=== PATIENT | female | born 1945 | race Caucasian/White ===

== ENCOUNTER 2017-03-14 21:44 | Emergency (ER) | payer MEDICARE, OTHER ==
[~2017-03-14] VITALS: Ht 162.6 cm; Wt 72.6 kg
[~2017-03-14 21:44] MED LIST: CRESTOR5 MG PO; CYTOMEL5 MCG PO; HYDROCHLOROTHIA1 TA1 PO; METOPROLOL 25 M25 MG PO; POTASSIUM CHLO10 ME3 PO
[2017-03-14 22:06] LABS: HEMOGLOBIN 15.8 g/dL (12.2-16.2); LYMPH # 3.1 K/mm3 (0.7-4.5); LYMPH % 44.2 % (10-50.0)
[2017-03-14 23:13] LABS: BUN 15 mg/dL (7-18)
[2017-03-14 23:16] LABS: GFR (ESTIMATED) 62 ML/MIN (59-)
--- NOTE | 2017-03-15 00:53 | Emergency Room Report ---
History of Present Illness Time Seen by [id number] Presenting Problem in Triage Pt arrived:Walked Presenting Problem:HEARTING RACING, HAD EATEN AND WAS GETTING READY FOR BED AND FELT HER HEART RACING. DENIES SOB, SHAKING OR SWEATING. Onset of symptoms date/time:03/14/1708/30/2114 or onset unknown for: Treatment Prior to Arrival: KNITTING TESTER Provided by: Sepsis Risk Assessment: Temp: 98.2 B/P: 130/77 MAP: 109 Pulse: 98 Resp: 18 Recent fever? N Clinical Suspician of Infection? N Mental Status: 1 - Regular (Normal Baseline) Sepsis Risk:Low Sepsis Risk Have you (or family members/close friends) recently traveled outside the [place]? N If Yes, where/when: Have you had exposure to infectious disease within the past month? N TB? Other? Specify: Comment The patient complains of rapid heartbeat that started at 9:15 PM. No chest pain, shortness of breath, nausea, or diaphoresis. No syncope. She has had this 3 times in the past, usually 6-7 years between episodes, but the last episode she had was in August. She says she has been told in the past that it might be due to a low potassium found during an episode or an under active thyroid. She has not been diagnosed with a specific arrhythmia to her knowledge. 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 The patient arrived during a very large influx of patients in the emergency department. Symptoms resolved after 2 hours in the emergency department without intervention. She is asymptomatic upon my evaluation. ALLERGIES Coded Allergies: No Known Allergies (12/25/15) Home Medications Active Scripts Liothyronine Sodium (Cytomel) 5 MCG PO DAILY #30 TAB Prov: 09/15/16 Metoprolol Tartrate (Metoprolol 25MG) 12.5 MG PO BID #60 TAB Prov: 09/15/16 Reported Medications LISINOPRIL/HYDROCHLOROTHIAZIDE (Lisinopril-Hctz 20-12.5 MG Tab) 1 TAB PO DAILY POTASSIUM CHL (Potassium Chloride) 10 MEQ PO TID Rosuvastatin Calcium (Crestor) 5 MG PO QHS History Medical History General CAD? No Angina: No [place]: No Hypertension? Yes Hyperlipidemia? Yes CHF? No DVT? No PE? No COPD? No Asthma? No Anemia? No GERD? No Gastric ulcers? No GI Bleed? No Hernia? No Thyroid Problems? No Hypothyroidism? No CVA? No Seizures? No Diabetes? No Renal Insuffiency? No End Stage Renal Disease? No UTI? No Stones? No GB Disease: No Nephritic Syndrome? No Asplenia? No Hepatitis? No Sickle Cell Disease? No Arthritis? No Migraines? No Cataracts? No Glaucoma? No MRSA? No HIV? No TB? No Anxiety? No Depression? No Cancer? No More? No Immunization Hx DT/Tetanus > 10 YRS Surgical Hx Previous Surgery?Y ORAL SURGERY Social History Smoking Hx Smoker: Never Smoker Tobacco: No Alcohol Alcohol: No Additionial History Additional History Last ED visit here was on September 15, diagnosis was supraventricular tachycardia. She was started on metoprolol at that time. Review of Systems All Other Systems Reviewed and Negative Constitutional denies diaphoresis Respiratory denies shortness of breath Cardiovascular denies chest pain, palpitations, denies syncope Physical Exam Vital Signs Vital Signs Date Time Temp Pulse Resp B/P Pulse O2 O2 Flow FiO2 Ox Delivery Rate 03/15 0019 98 18 130/77 95 03/14 2332 98.2 91 18 113/81 94 03/14 2300 98.2 94 18 118/91 100 03/14 2146 98.2 169 18 134/97 97 General Appearance normal appearance, WD/WN Eye Exam - bilateral eye normal exam, bilateral eye PERRL, bilateral eye EOMI Ear, Nose, Throat hearing grossly normal, normal ENT inspection Neck normal inspection, non-tender, supple, full range of motion Respiratory Status Yes: trachea midline, chest symmetrical, non tender chest. No: respiratory distress. Lung Sounds bilateral: normal breath sounds, lungs clear. 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 No Results/Orders Laboratory Tests 03/14/172234: TSH 11.93 H, Free T4 0.73 L 03/14/172234: Sodium 138, Potassium 4.0, Chloride 102, Carbon Dioxide 25, BUN 15, Creatinine 0.9, Estimated Creat Clear 68, Estimated GFR (MDRD) 62, Glucose 242 H, Calcium 9.1, Total Bilirubin 0.3, AST 32, ALT 52, Alkaline Phosphatase 126 H, Creatine Kinase 135, CK-MB (CK-2) Rel Index 1.0, CK and CKMB Interp 1.3, Troponin I < 0.02, Total Protein 7.8, Albumin 4.1, Globulin 3.7 H, Albumin/Globulin Ratio 1.1 03/14/172144: WBC 7.0, RBC 5.05, Hgb 15.8, Hct 48.2 H, MCV 95.5, RDW 13.4, Plt Count 180, MPV 9.6, Gran % 42.0, Gran # 2.9, Lymphocytes % 44.2, Monocytes % 5.9, Eosinophils % 6.9, Basophils % 1.0, Lymphocytes # 3.1, Monocytes # 0.4, Eosinophils # 0.5 H, Basophils # 0.1, PUBS MCHC 32.7, MCH 31.2 Orders Procedure Date/time Status RUBBER GOODS INSPECTOR TESTER 03/14 2359 Active THYROID STIMULATING HORMONE 03/14 2358 Complete FREE T4 03/14 2358 Complete ELECTROCARDIOGRAM REQUEST 03/14 2200 Active CHEST(2 VIEWS-NOT PORTABLE) 03/14 2200 Active IV SALINE LOCK 03/14 2200 Active CBC WITH AUTO DIFF 03/14 2200 Complete CARDIAC ENZYMES 03/14 2200 Complete CHEM 12 PROFILE 03/14 2200 Complete 12 LEAD EKG-CATHRYN (INITIAL) 03/14 UNK Active CM/EKG CM/EKG Comments EKG interpreted by Ari Ramirez MD: Rhythm: Supraventricular tachycardia Rate: 178 [place]: normal Ectopy: none Conduction: normal ST Segment Changes: none T Wave Changes: none Q Waves: none No evidence of acute ischemia or injury Low voltage QRS Baseline artifact present, but I consider the EKG adequate for accurate interpretation. EKG #2 interpreted by Ari Ramirez MD: Rhythm: sinus Rate: 95 [place]: normal Ectopy: none Conduction: normal ST Segment Changes: none T Wave Changes: none Q Waves: none No evidence of acute ischemia or injury Departure Departure Disposition DC Home or Self Care(routine) Clinical Impression Primary Impression: Supraventricular tachycardia Secondary Impressions: Hyperglycemia Condition STABLE Referrals Tobias REINOSO,Demetris Serrano (Family) Nicanor Rosa MD call for appointment Patient Instructions DI for Hyperglycemia -- Adult, DI for Paroxysmal Supraventricular Tachycardia Additional Instructions Call Dr. Rosa, mill tender second operator to make a follow-up appointment. Return to the emergency department if symptoms recur. Follow-up with your primary care physician for your blood sugar. Call tomorrow to arrange appointment. ED Critical Care Critical Care No
--- NOTE | 2017-03-15 00:53 | Emergency Room Report ---
History of Present Illness Time Seen by [id number] Presenting Problem in Triage Pt arrived:Walked Presenting Problem:HEARTING RACING, HAD EATEN AND WAS GETTING READY FOR BED AND FELT HER HEART RACING. DENIES SOB, SHAKING OR SWEATING. 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 N Clinical Suspician of Infection? N Mental Status: 1 - Regular (Normal Baseline) Sepsis Risk:Low Sepsis Risk Have you (or family members/close friends) recently traveled outside the [place]? N If Yes, where/when: Have you had exposure to infectious disease within the past month? N TB? Other? Specify: Comment The patient complains of rapid heartbeat that started at 9:15 PM. No chest pain, shortness of breath, nausea, or diaphoresis. No syncope. She has had this 3 times in the past, usually 6-7 years between episodes, but the last episode she had was in August. She says she has been told in the past that it might be due to a low potassium found during an episode or an under active thyroid. She has not been diagnosed with a specific arrhythmia to her knowledge. She does not have a computer operations supervisor. The patient arrived during a very large influx of patients in the emergency department. Symptoms resolved after 2 hours in the emergency department without intervention. She is asymptomatic upon my evaluation. ALLERGIES Coded Allergies: No Known Allergies (12/25/15) Home Medications Active Scripts Liothyronine Sodium (Cytomel) 5 MCG PO DAILY #30 TAB Prov: 09/15/16 Metoprolol Tartrate (Metoprolol 25MG) 12.5 MG PO BID #60 TAB Prov: 09/15/16 Reported Medications LISINOPRIL/HYDROCHLOROTHIAZIDE (Lisinopril-Hctz 20-12.5 MG Tab) 1 TAB PO DAILY POTASSIUM CHL (Potassium Chloride) 10 MEQ PO TID Rosuvastatin Calcium (Crestor) 5 MG PO QHS History Medical History General CAD? No Angina: No [place]: No Hypertension? Yes Hyperlipidemia? Yes CHF? No DVT? No PE? No COPD? No Asthma? No Anemia? No GERD? No Gastric ulcers? No GI Bleed? No Hernia? No Thyroid Problems? No Hypothyroidism? No CVA? No Seizures? No Diabetes? No Renal Insuffiency? No End Stage Renal Disease? No UTI? No Stones? No GB Disease: No Nephritic Syndrome? No Asplenia? No Hepatitis? No Sickle Cell Disease? No Arthritis? No Migraines? No Cataracts? No Glaucoma? No MRSA? No HIV? No TB? No Anxiety? No Depression? No Cancer? No More? No Immunization Hx DT/Tetanus > 10 YRS Surgical Hx Previous Surgery?Y ORAL SURGERY Social History Smoking Hx Smoker: Never Smoker Tobacco: No Alcohol Alcohol: No Additionial History Additional History Last ED visit here was on September 15, diagnosis was supraventricular tachycardia. She was started on metoprolol at that time. Review of Systems All Other Systems Reviewed and Negative Constitutional denies diaphoresis Respiratory denies shortness of breath Cardiovascular denies chest pain, palpitations, denies syncope Physical Exam Vital Signs Vital Signs Date Time Temp Pulse Resp B/P Pulse O2 O2 Flow FiO2 Ox Delivery Rate 03/15 0019 98 18 130/77 95 03/14 2332 98.2 91 18 113/81 94 03/14 2300 98.2 94 18 118/91 100 03/14 2146 98.2 169 18 134/97 97 General Appearance normal appearance, WD/WN Eye Exam - bilateral eye normal exam, bilateral eye PERRL, bilateral eye EOMI Ear, Nose, Throat hearing grossly normal, normal ENT inspection Neck normal inspection, non-tender, supple, full range of motion Respiratory Status Yes: trachea midline, chest symmetrical, non tender chest. No: respiratory distress. Lung Sounds bilateral: normal breath sounds, lungs clear. 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 No Results/Orders Laboratory Tests 03/14/172234: TSH 11.93 H, Free T4 0.73 L 03/14/172234: Sodium 138, Potassium 4.0, Chloride 102, Carbon Dioxide 25, BUN 15, Creatinine 0.9, Estimated Creat Clear 68, Estimated GFR (MDRD) 62, Glucose 242 H, Calcium 9.1, Total Bilirubin 0.3, AST 32, ALT 52, Alkaline Phosphatase 126 H, Creatine Kinase 135, CK-MB (CK-2) Rel Index 1.0, CK and CKMB Interp 1.3, Troponin I < 0.02, Total Protein 7.8, Albumin 4.1, Globulin 3.7 H, Albumin/Globulin Ratio 1.1 03/14/172144: WBC 7.0, RBC 5.05, Hgb 15.8, Hct 48.2 H, MCV 95.5, RDW 13.4, Plt Count 180, MPV 9.6, Gran % 42.0, Gran # 2.9, Lymphocytes % 44.2, Monocytes % 5.9, Eosinophils % 6.9, Basophils % 1.0, Lymphocytes # 3.1, Monocytes # 0.4, Eosinophils # 0.5 H, Basophils # 0.1, PUBS MCHC 32.7, MCH 31.2 Orders Procedure Date/time Status BRAZER CRAWLER TORCH 03/14 2359 Active THYROID STIMULATING HORMONE 03/14 2358 Complete FREE T4 03/14 2358 Complete ELECTROCARDIOGRAM REQUEST 03/14 2200 Active CHEST(2 VIEWS-NOT PORTABLE) 03/14 2200 Active IV SALINE LOCK 03/14 2200 Active CBC WITH AUTO DIFF 03/14 2200 Complete CARDIAC ENZYMES 03/14 2200 Complete CHEM 12 PROFILE 03/14 2200 Complete 12 LEAD EKG-CATHRYN (INITIAL) 03/14 UNK Active CM/EKG CM/EKG Comments EKG interpreted by Ari Ramirez MD: Rhythm: Supraventricular tachycardia Rate: 178 [place]: normal Ectopy: none Conduction: normal ST Segment Changes: none T Wave Changes: none Q Waves: none No evidence of acute ischemia or injury Low voltage QRS Baseline artifact present, but I consider the EKG adequate for accurate interpretation. EKG #2 interpreted by Ari Ramirez MD: Rhythm: sinus Rate: 95 [place]: normal Ectopy: none Conduction: normal ST Segment Changes: none T Wave Changes: none Q Waves: none No evidence of acute ischemia or injury Departure Departure Disposition DC Home or Self Care(routine) Clinical Impression Primary Impression: Supraventricular tachycardia Secondary Impressions: Hyperglycemia Condition STABLE Referrals Tobias REINOSO,Demetris Serrano (Family) Nicanor Rosa MD call for appointment Patient Instructions DI for Hyperglycemia -- Adult, DI for Paroxysmal Supraventricular Tachycardia Additional Instructions Call Dr. Rosa, computer operations supervisor to make a follow-up appointment. Return to the emergency department if symptoms recur. Follow-up with your primary care physician for your blood sugar. Call tomorrow to arrange appointment. ED Critical Care Critical Care No
[2017-03-15 01:24] VITALS: BP 109/76
--- NOTE | 2017-03-15 07:58 | RADIOLOGY REPORT PS360 ---
CHEST(2 VIEWS-NOT PORTABLE) COMPARISON: Portable upright chest 09/15/2016 HISTORY: Tachycardia TECHNIQUE: PA and lateral chest FINDINGS: The support inspiration resulting some crowding of the vascular markings at the lung bases. Cardiac size is normal and the vascularity appears grossly normal. IMPRESSION: Poor inspiration, grossly negative chest
--- OUTSIDE RECORDS SUMMARY | 2017-03-17 18:56 | External Medical Summary Rpt ---
Author Author , LILIA RODRIGUES Address Unknown Phone [email or web address] Purpose Continuity of Care Document - through 2016 Problems Code Diagnosis DOS Provider Status E03.9 HYPOTHYROID ISM, UNSPECIFIED I47.1 SUPRAVENTRI CULAR TACHYCARDIA R73.9 HYPERGLYCEM IA, UNSPECIFIED
--- OUTSIDE RECORDS SUMMARY | 2017-03-17 18:56 | External Medical Summary Rpt ---
Author Author [employer] Organization [employer] Address Unknown Phone Unavailable Purpose Continuity of Care Document - through 2016
--- OUTSIDE RECORDS SUMMARY | 2017-03-17 18:56 | External Medical Summary Rpt ---
Demographics Preferred Language Romanian Marital Status Unknown Buddhism Affiliation Unknown Race Unknown Ethnic Group Unknown Author Author , SHAHNAZ RODRIGUES Address Unknown Phone Immunization Unable to retrieve immunization data due to connection failure with Immunization Registry. Please try again later.
--- OUTSIDE RECORDS SUMMARY | 2017-03-17 18:56 | External Medical Summary Rpt ---
Author Author , LILIA RODRIGUES Address Unknown Phone [email or web address] Purpose Continuity of Care Document - through 2016 Problems Code Diagnosis DOS Provider Status E03.9 HYPOTHYROID ISM, UNSPECIFIED I47.1 SUPRAVENTRI CULAR TACHYCARDIA R73.9 HYPERGLYCEM IA, UNSPECIFIED
--- OUTSIDE RECORDS SUMMARY | 2017-03-17 18:56 | External Medical Summary Rpt ---
Demographics Preferred Language Divehi Marital Status Unknown Roman Catholic Affiliation Unknown Race Unknown Ethnic Group Unknown Author Author , SHAHNAZ RODRIGUES Address Unknown Phone Immunization Unable to retrieve immunization data due to connection failure with Immunization Registry. Please try again later.
== END 2017-03-15 01:25 | disposition home or self-care (01) ==
LOC: ER 21:44
PROVIDERS: Emergency Medicine
DX: I47.1 Supraventricular tachycardia (principal); R73.9 Hyperglycemia, unspecified

== ENCOUNTER → 2017-03-21 | Outpatient (CLI) | payer MEDICARE, OTHER ==
[2017-03-21 07:34] LABS: FASTING URINE GLUCOSE NEGATIVE
[2017-03-21 08:58] LABS: 1 HR URINE GLUCOSE 3+ mg/ml
[2017-03-21 10:12] LABS: 2 HR URINE GLUCOSE 3+ mg/ml
== END ==
LOC: LAB 07:10
PROVIDERS: Internal Medicine
DX: I11.9 Hypertensive heart disease without heart failure (principal); I47.1 Supraventricular tachycardia; E78.5 Hyperlipidemia, unspecified; E03.9 Hypothyroidism, unspecified; Z79.899 Other long term (current) drug therapy